=== PATIENT | male | born 1980 | race Caucasian/White ===

== ENCOUNTER 2017-12-22 11:47 | Emergency (ER) | payer SELFPAY ==
[~2017-12-22] VITALS: Ht 195.6 cm; Wt 74.8 kg
--- NOTE | 2017-12-22 12:48 | ED Lower Extremity ---
General Chief Complaint: Lower Extremity Stated Complaint: SPOTS ON RT LEG SWELING Nursing Triage Note: TO ROOM REPORTS WAS WORKING ON HIS KNEE'S ON SATURDAY. HAS HAD PAIN IN R KNEE SINCE. ABRASION WITH REDNESS NOTED TO KNEE. ALSO C/O HEADACHE ,BUT NOT TAKEN ANYTHING AT HOME. Nursing Sepsis Screen: No Definite Risk Source: patient, spouse Exam Limitations: no limitations History of Present Illness Date Seen by Provider: Dec 22, 2017 Time Seen by Provider: 12:48 Initial Comments 37-year-old male patient presents to the emergency Department with reports of redness and pain to the right knee yesterday. Patient now stating he was camping on Saturday and was crawling around on his knees working on something. Also reports a headache starting this a.m. Denies taking anything at home for pain or headache. Patient thinks it may be a spider bite. He tried to cut them open at home without relief. Onset: yesterday Pain/Injury Location: right knee Modifying Factors: Worse With Other (worse with palpation) Allergies and Home Medications Allergies Coded Allergies: No Known Drug Allergies (Unverified , 12/22/17) Home Medications Naproxen 500 Mg Tablet, 500 MG PO BID PRN for pain Prescribed by: BEATRIS PÉREZ on 12/22/17 1313 Sulfamethoxazole/Trimethoprim 1 Each Tablet, 1 EACH PO BID Prescribed by: BEATRIS PÉREZ on 12/22/17 1313 Patient Home Medication List Home Medication List Reviewed: Yes Constitutional: No chills, No dizziness, No fever, No malaise EENTM: no symptoms reported Respiratory: no symptoms reported Cardiovascular: no symptoms reported Gastrointestinal: no symptoms reported Musculoskeletal: see HPI, joint pain; No neck pain Skin: see HPI Psychiatric/Neurological: No Symptoms Reported All Other Systems Reviewed Negative Unless Noted: Yes (Negative excepted noted.) Past Nxqbiry-Akehbp-Gapcqy Hx Past Med/Social Hx: Reviewed Nursing Past Med/Soc Hx Patient Social History Alcohol Use: Occasionally Uses Recreational Drug Use: Yes (POT) Smoking Status: Current Everyday Smoker 2nd Hand Smoke Exposure: Yes Recent Foreign Travel: No Contact w/Someone Who Travel: No Recent Infectious Disease Expo: No Past Medical History Surgeries: No Respiratory: No Cardiac: No Neurological: No Genitourinary: No Gastrointestinal: No Musculoskeletal: No Endocrine: No HEENT: No Cancer: No Psychosocial: No Integumentary: No Family Medical History Reviewed Nursing Family Hx No Pertinent Family Hx Physical Exam Vital Signs Vital Signs - First Documented 12/22/17 12:10 Temp 99.8 Pulse 82 Resp 18 B/P (MAP) 142/ Pulse Ox 100 O2 Delivery Room Air Capillary Refill : Less Than 3 Seconds Height, Weight, BMI Height: 6'5.00" Weight: 165lbs. oz. 74.177124qs; BMI Method:Stated General Appearance: WD/WN, no apparent distress HEENT: PERRL/EOMI, pharynx normal Neck: supple, normal inspection Cardiovascular: normal peripheral pulses, regular rate, rhythm, no edema, no murmur Respiratory: lungs clear, normal breath sounds, no respiratory distress, no accessory muscle use Hips: bilateral hip non-tender, bilateral hip normal inspection, bilateral hip normal range of motion, bilateral hip no evidence of injury Legs: bilateral leg non-tender, bilateral leg normal range of motion, bilateral leg other (multiple scabs to the bilateral distal legs without cellulitis.) Knees: left knee non-tender, left knee normal inspection; bilateral knee normal range of motion; right knee pain, right knee soft tissue tenderness ( soft tissue tenderness noted to the right medial knee and right inferior anterior knee at the sites of cellulitis.), right knee swelling (swelling noted to the right medial and right inferior anterior knee at the sites of cellulitis. ), right knee other (right medial knee shows a 3 x 3 cm area of erythema, swelling, soft tissue tenderness, mild warmth, and induration. Inferior to the right patella shows a 2 x 2cm area of erythema, mild swelling, and soft tissue tenderness. Central scab is noted to both areas of cellulitis.) Ankles: bilateral ankle non-tender, bilateral ankle normal range of motion, bilateral ankle other (scabs noted to the bilateral ankles overlying veins. No evidence of cellulitis.) Feet: bilateral foot non-tender, bilateral foot normal range of motion, bilateral foot other (scabs noted to the bilateral dorsal feet overlying veins. No evidence of cellulitis.) Neurologic/Tendon: normal sensation, normal motor functions, normal tendon functions, no evidence tendon injury Neurologic/Psychiatric: no motor/sensory deficits, alert, normal mood/affect, oriented x 3 Skin: normal color, warm/dry, other (see extremities exams as described above. ) Progress/Results/Core Measures Results/Orders My Orders Orders - BEATRIS PÉREZ Hydrocodone/Apap 10/325 Tablet (Lortab 1 (12/22/17 12:59) Clindamycin Capsule (Cleocin Capsule) (12/22/17 12:59) Vital Signs/I&O 12/22/17 12:10 Temp 99.8 Pulse 82 Resp 18 B/P (MAP) 142/ Pulse Ox 100 O2 Delivery Room Air Departure Communication (Admissions) Patient seen and evaluated. Patient given 1 dose of Cleocin and 1 dose of lortab in the emergency department. Patient to pick up attendant the Bactrim and Naprosyn at [facility] pharmacy and began this afternoon. reports patient typically goes to the clinic in [place] for any problems. He will follow-up with the clinic or primary care provider in [place], [place] for recheck in the next 1 -2 days. Impression Primary Impression: Cellulitis Qualified Codes: L03.115 - Cellulitis of right lower limb Disposition: HOME, SELF-CARE Condition: Improved Departure-Patient Inst. Decision time for Depature: 13:10 Referrals: NO,LOCAL PHYSICIAN (PCP) Primary Care Physician Patient Instructions: Cellulitis (Skin Infection), Adult (DC) Add. Discharge Instructions: All discharge instructions reviewed with patient and/or family. Voiced understanding. Medications as instructed. Tylenol extra strength over-the- counter as directed for pain. Elevate the right knee on pillows above the level of the heart for the next 2 days. Follow-up with the clinic or your primary care provider in [place] for recheck in the next 1-2 days. Call tomorrow morning for an appointment time. Return to the emergency department for worsened symptoms or any other concerns. Scripts Naproxen (Naprosyn) 500 Mg Tablet 500 MG PO BID PRN for pain, #20 TAB 0 Refills Prov: BEATRIS PÉREZ 12/22/17 Sulfamethoxazole/Trimethoprim (Bactrim Ds Tablet) 1 Each Tablet 1 EACH PO BID, #20 TAB 0 Refills Prov: BEATRIS PÉREZ 12/22/17 Images Extremities-Lower 1 - Cellulitis 2 - Cellulitis BEATRIS PÉREZ Dec 22, 2017 12:48
[2017-12-22] MEDS ORDERED: CLINDAMYCIN 150 MG (CLEOCIN) CAP PO STA (12:59)
[2017-12-22] MEDS ORDERED: HYDROcodone/APAP 10 MG/325 MG (LORTAB) TAB PO STA (12:59)
[2017-12-22] MEDS ORDERED: SULF1TAB35 PO (13:13)
[2017-12-22] MEDS ORDERED: NAPR-1071 PO (13:13)
[2017-12-22 13:19] VITALS: BP 142/78
== END 2017-12-22 13:26 | disposition home or self-care (01) ==
LOC: ER 11:52
DX: L03.115 Cellulitis of right lower limb (principal); F12.10 Cannabis abuse, uncomplicated; F17.210 Nicotine dependence, cigarettes, uncomplicated
CPT/HCPCS: 99283